=== PATIENT | female | born 1945 | race Caucasian/White ===

== ENCOUNTER 2016-06-18 02:47 | Emergency (ER) | payer OTHER, MEDICARE ==
[2016-06-18 03:00] VITALS: TEMP 97.4; BMI 32.9
--- NOTE | 2016-06-18 03:16 | PDOC ---
History of Present Illness - General History Source: Patient <Jahaira Anthonyan - Last Filed: 06/18/16 04:12> - General History Source: Patient, Family Exam Limitations: No Limitations - History of Present Illness Initial Comments: 06/18/16 03:57 The patient is a 70-year-old female with a significant past medical history of hypertension, who presents to the emergency department complaining of a headache that radiates into her neck, for the past hour (approximately 02:15-03: 15). The patient states she had been walking normally yesterday, when her symptoms suddenly began. She reports she has been awake until she arrived to the ED. The patient reports her headache is focused on the right side of her head. She reports associated weakness and paresthesias to the left lower extremities. The patient reports associated nausea and vomiting (X3-4 episodes) . The patient states she continues to feel nauseous and denies hemoptysis. She reports no alleviating or exacerbating factors. The patient denies any recent head trauma or LOC. She denies any chest pain, diaphoresis, palpitations, or shortness of breath. She denies diarrhea or constipation. She denies dysuria, frequency, urgency, and hematuria. She denies fever, chills, cough, or dizziness. Allergies: None reported. Past Surgical History: None reported. Social History: Non-smoker. Denies alcohol or drug use. PCP: Dr. Sarah Beth Leon <Lis Jimenez - Last Filed: 06/18/16 04:29> - General Chief Complaint: Headache Stated Complaint: HEADACHE/LEG NUMBNESS Time Seen by Provider: 06/18/16 02:58 Past History - Past Medical History HTN: Yes - Psycho/Social/Smoking Cessation Hx Anxiety: No Suicidal Ideation: No Smoking History: Never smoked Have you smoked in the past 12 months: No Information on smoking cessation initiated: No Hx Alcohol Use: No Drug/Substance Use Hx: No <Ronny Anthony - Last Filed: 06/18/16 04:12> <Lis Jimenez - Last Filed: 06/18/16 04:29> - Past Medical History Allergies/Adverse Reactions: Allergies Allergy/AdvReac Type Severity Reaction Status Date / Time No Known Allergies Allergy Verified 06/18/16 02:58 Home Medications: Ambulatory Orders Amlodipine Besylate 5 mg PO DAILY 06/18/16 Gabapentin 100 mg PO DAILY 06/18/16 Meclizine HCl 12.5 mg PO PRN 06/18/16 Pantoprazole Sodium [Protonix] 40 mg PO DAILY 06/18/16 Simvastatin [Zocor -] 20 mg PO HS 06/18/16 Review of Systems - Review of Systems Able to Perform ROS?: Yes Comments:: 06/18/16 03:42 CONSTITUTIONAL: Absent: fever, chills, diaphoresis, generalized weakness, malaise, loss of appetite HEENT: Absent: rhinorrhea, nasal congestion, throat pain, throat swelling, difficulty swallowing, mouth swelling, ear pain, eye pain, visual Changes CARDIOVASCULAR: Absent: chest pain, syncope, palpitations, irregular heart rate, lightheadedness , peripheral edema RESPIRATORY: Absent: cough, shortness of breath, dyspnea with exertion, orthopnea, wheezing, stridor, hemoptysis GASTROINTESTINAL: Present: +nausea, +vomiting Absent: abdominal pain, abdominal distension, diarrhea, constipation, melena, hematochezia GENITOURINARY: Absent: dysuria, frequency, urgency, hesitancy, hematuria, flank pain, genital pain MUSCULOSKELETAL: Absent: myalgia, arthralgia, joint swelling SKIN: Absent: rash, itching, pallor HEMATOLOGIC/IMMUNOLOGIC: Absent: easy bleeding, easy bruising, lymphadenopathy, frequent infections ENDOCRINE: Absent: unexplained weight gain, unexplained weight loss, heat intolerance, cold intolerance NEUROLOGIC: Present: +headache, +focal weakness and parasthesias to left lower extremity. Absent: dizziness, unsteady gait, seizure, mental status changes, bladder or bowel incontinence PSYCHIATRIC: Absent: anxiety, depression, suicidal or homicidal ideation, hallucinations. <Lis Jimenez - Last Filed: 06/18/16 04:29> *Physical Exam - Vital Signs Last Vital Signs Temp Pulse Resp BP Pulse Ox 97.4 F L 100 H 18 149/86 96 06/18/16 02:58 06/18/16 02:58 06/18/16 02:58 06/18/16 02:58 06/18/16 02:58 <Ronny Anthony - Last Filed: 06/18/16 04:12> - Vital Signs Last Vital Signs Temp Pulse Resp BP Pulse Ox 97.4 F L 100 H 18 149/86 96 06/18/16 02:58 06/18/16 02:58 06/18/16 02:58 06/18/16 02:58 06/18/16 02:58 - Physical Exam Comments: 06/18/16 03:41 GENERAL: Well developed, well nourished. Awake and alert. No acute distress. HEENT: Normocephalic, atraumatic. PERRLA, EOMI. No conjunctival pallor. Sclera are non- icteric. Moist mucous membranes. Oropharynx is clear. NECK: Supple. Full ROM. No JVD. Carotid pulses 2+ and symmetric, without bruits. No thyromegaly. No lymphadenopathy. CARDIOVASCULAR: Regular rate and rhythm. No murmurs, rubs, or gallops. Distal pulses are 2+ and symmetric. PULMONARY: No evidence of respiratory distress. Lungs clear to auscultation bilaterally. No wheezing, rales or rhonchi. ABDOMINAL: Soft. Non-tender. Non-distended. No rebound or guarding. No organomegaly. Normoactive bowel sounds. MUSCULOSKELETAL Normal range of motion at all joints. No bony deformities or tenderness. No CVA tenderness. EXTREMITIES: +Lower extremity strength: RLE 5/5 and LLE 1/5. +Upper extremity strength 5/5 bilaterally. No cyanosis. No clubbing. No edema. No calf tenderness. SKIN: Warm and dry. Normal capillary refill. No rashes. No jaundice. NEUROLOGICAL: +Eyes were restricted to left lateral gaze. +Cranial nerves are intact, excluding 3. +Parasthesia in left lower extremity. Alert, awake, appropriate. No deficits to light touch and temperature in face, and upper extremities. No motor deficits in the in face, and upper extremities. Normoreflexic in the upper extremities. Normal speech. PSYCHIATRIC: Cooperative. Good eye contact. Appropriate mood and affect. <Lis Jimenez - Last Filed: 06/18/16 04:29> Heart Score/ECG Review - ECG Impressions Comment:: 06/18/16 04:09 Vent. Rate: 95 bpm IMPRESSION: Normal sinus rhythm. <Lis Jimenez - Last Filed: 06/18/16 04:29> ED Treatment Course - LABORATORY CBC & Chemistry Diagram: 06/18/16 03:16 06/18/16 03:16 <Ronny Anthony - Last Filed: 06/18/16 04:12> - LABORATORY CBC & Chemistry Diagram: 06/18/16 03:16 06/18/16 03:16 - RADIOLOGY Radiograph Interpretation: 06/18/16 04:07 EXAM: Head CT INTERPRETED BY: Dr. Cardenas REVIEWED BY: Dr. Anthony IMPRESSION: Right parietal/occipital/posterior temporal lobe intra-axial hemorrhage with associated small ipsilateral tentorial subdural hematoma, regional sulcal subarachnoid blood and ~5mm [id number] midline shift. There is no gross acute ischemic infarction; no ventriculomegaly. <Lis Jimenez - Last Filed: 06/18/16 04:29> Medical Decision Making - Medical Decision Making 06/18/16 04:14 Dr. Anthony: The scribe's documentation has been prepared under my direction and personally reviewed by me in its entirery. I confirm that the note above accurately reflects all work, treatment, procedures, and medical decision making performed by me. Patient with large right-sided intracranial hemorrhage. Patient with severe left lower extremity weakness. patient accepted for transfer by Dr. Wilson to [facility]. <Ronny Anthony - Last Filed: 06/18/16 04:12> - Medical Decision Making 06/18/16 03:58 First call placed to on-call radiologist for CT reading at 03:40. Case discussed with radiologist at 03:45. Case discussed for transfer to [facility] at 04:00. <Lis Jimenez - Last Filed: 06/18/16 04:29> *DC/Admit/Observation/Transfer - Discharge Dispostion Admit: No - Transfer to Acute Care Facility Receiving Facility: [facility]. Accepting Physician:: Dr. Wilson <Ronny Anthony - Last Filed: 06/18/16 04:12> - Attestations Scribe Attestion: 06/18/16 03:42 Documentation prepared by Lis Jimenez, acting as medical office professional instructor for Ronny Anthony DO. <Lis Jimenez - Last Filed: 06/18/16 04:29> Diagnosis at time of Disposition: Intracranial hemorrhage - Discharge Dispostion Disposition: TRANSFER ACUTE CARE/OTHER HOSP Condition at time of disposition: Guarded
[2016-06-18] MEDS ORDERED: ONDANSETRON 4 MG/2 ML VIAL ONE (03:28)
[2016-06-18] MEDS ORDERED: SODIUM CHLORIDE 1,000 ML IV SCH (03:30)
[2016-06-18] MEDS ORDERED: ONDANSETRON 4 MG/2 ML VIAL IVPUSH ONE (03:40)
[2016-06-18 03:42] LABS: BASOPHIL 0.8 % (0-2.0); EOSINOPHIL 0.7 % (0-4.5); MCH 28.4 pg (25.7-33.7); MCHC 32.4 g/dl (32.0-36.0); MEAN CELL VOLUME 87.6 fl (80-96); MEAN PLT VOLUME 7.5 fl (7.5-11.1); NEUTROPHILS 74.1 % (42.8-82.8); PLATELET COUNT 306 K/MM3 (134-434); RDW 12.8 % (11.6-15.6); WHITE BLOOD COUNT 12.4 K/mm3 (4.0-10.0)
[2016-06-18 03:53] LABS: INR 1.22 (0.82-1.09); PROTHROMBIN TIME (PATIENT) 13.5 SEC (9.98-11.88)
[2016-06-18 03:57] LABS: URINE APPEARANCE CLEAR; URINE BILIRUBIN NEGATIVE (NEGATIVE); URINE COLOR LTYELLOW; URINE GLUCOSE (UA) NEGATIVE (NEGATIVE); URINE KETONE NEGATIVE (NEGATIVE); URINE NITRITE NEGATIVE (NEGATIVE); URINE PROTEIN NEGATIVE (NEGATIVE); URINE UROBILINOGEN NEGATIVE E.U./dl (0.2-1.0)
[2016-06-18 03:58] LABS: URINE BLOOD 1+ (NEGATIVE); URINE LEUK ESTERASE TRACE (NEGATIVE)
[2016-06-18 04:03] LABS: ANION GAP 11 (8-16); BILIRUBIN,TOTAL 0.4 mg/dL (0.2-1.0); CHOLESTEROL 152 mg/dL (50-200); CO2 25 mmol/L (21-32); CREATININE 0.8 mg/dL (0.55-1.02); GLUCOSE,RANDOM 184 mg/dL (74-106); LDL CHOLESTEROL (ONLY SJRH) 89 mg/dL (5-100); SGOT/AST 21 U/L (15-37); SGPT/ALT 28 U/L (12-78); TOT PROT 7.2 g/dl (6.4-8.2)
[2016-06-18] MEDS ORDERED: levETIRAcetam 500 MG/5 ML INJECTION VIAL IVPB ONE ×2 (04:03→04:09)
[2016-06-18 04:05] LABS: ALK PHOS 44 U/L (45-117); TROPONIN I < 0.02 ng/ml (0.00-0.05)
[2016-06-18 04:07] LABS: URINE RBC 12 /hpf (0-3); URINE WBC 1 /hpf (3-5)
[2016-06-18 04:14] VITALS: BP 149/59; PULSE 86
--- NOTE | 2016-06-18 10:55 | EKG ---
Test Reason : Blood Pressure : / mmHG Vent. Rate : 095 BPM Atrial Rate : 095 BPM P-R Int : 184 ms QRS Dur : 090 ms QT Int : 368 ms P-R-T Axes : 039 012 014 degrees QTc Int : 462 ms POOR DATA QUALITY, INTERPRETATION MAY BE ADVERSELY AFFECTED NORMAL SINUS RHYTHM NONSPECIFIC ST ABNORMALITY NO PREVIOUS ECGS AVAILABLE Confirmed by WOLFGANG YUN MD ([id number]) on 06/18/2016 10:55:11 AM Referred By: Confirmed By:WOLFGANG YUN MD
== END 2016-06-18 04:39 | disposition short-term general hospital (02) ==
LOC: JER 02:47
PROC: 3E033GC Introduction of Other Therapeutic Substance into Peripheral Vein, Percutaneous Approach (ICD-10-PCS; principal; 2016-06-18)
DX: R51 Headache (principal); I10 Essential (primary) hypertension
CPT/HCPCS: 36415; 70450-TC; 71010-TC; 80053; 81003; 81015; 82465; 82550; 83718; 83721; 84478; 84484; 85025; 85610; 86850; 86900; 86901; 93005; 93010; 96374; 96375; 99285-25